=== PATIENT | female | born 2000 | race Caucasian/White ===

== ENCOUNTER 2023-03-02 10:42 | Emergency (ER) | payer OTHER, SELFPAY ==
[2023-03-02 10:43] VITALS: BP 98/64; PULSE 89; RESP 14; TEMP 36.2; O2SAT 100; BMI 23.6
--- NOTE | 2023-03-02 10:48 | ED.RN ---
denies pain at this time
--- NOTE | 2023-03-02 11:46 | EX.ED.DYSGE1 ---
HPI <DAMIR Malcolm - Last Filed: 03/02/23 15:17> History of Present Illness Chief Complaint: Abd Pain Narrative Narrative: Patient presenting today with her parents with intermittent epigastric abdominal pain that she has had since October. She reports that she was seen in an ED in October for this issue where they did a work-up on her and thought that she may have a gastric ulcer and placed her on 2 medications to help control the acid, she did feel relief with these medications but they only gave her 2 weeks worth of meds and she has since ran out. She reports that before her stomach pain began she was taking a lot of ibuprofen after having her wisdom teeth removed. Ibuprofen seems to make the pain worse. She reports she is not able to eat as much as she used to be able to and feels that greasy foods worsen her symptoms. She is nauseous at times but has only had 1 episode of vomiting in this timeframe. LMP two weeks ago. She denies any fever, chills, prior abdominal surgery, constipation/diarrhea, blood in the stool, vomiting and urinary symptoms. PFSH <DAMIR Malcolm - Last Filed: 03/02/23 15:17> PFSH Medical History no medical history Home Medications pantoprazole 40 mg tablet,delayed release (Protonix) 40 mg PO DAILY 14 days #14 tabs 03/02/23 [Rx Last Taken Unknown] sucralfate 1 gram tablet (Carafate) 1 g PO BID 7 days #14 tabs 03/02/23 [Rx Last Taken Unknown] Allergy/AdvReac Type Severity Reaction Status Date / Time No Known Allergies Allergy Verified 03/02/23 10:43 Social History Smoking Status: Never smoker ROS <DAMIR Malcolm - Last Filed: 03/02/23 15:17> ROS ED Constitutional Constitutional ED: Denies chills or fever(s) Cardiovascular Cardiovascular: Denies chest pain Respiratory/Chest Respiratory/Chest: Denies cough or dyspnea Gastrointestinal Gastrointestinal: Reports abdominal pain and nausea; Denies constipation, diarrhea or vomiting Genitourinary Genitourinary ED: Denies dysuria, hematuria or urinary frequency Musculoskeletal Musculoskeletal: Denies arthralgias, back pain or myalgias Integumentary Denies abscess, Abrasions or rash EXAM <DAMIR Malcolm - Last Filed: 03/02/23 15:17> Physical Exam Const Vital Signs: 03/02/23 10:43 03/02/23 14:00 03/02/23 15:07 Temperature 97.1 F L Temperature Source Temporal Pulse Rate 89 72 68 Respiratory Rate 14 16 15 Blood Pressure 98/64 124/66 H 124/77 H Blood Pressure Mean 75 85 Pulse Ox 100 99 99 Oxygen Delivery Method Room Air Room Air Positive well nourished, well developed and no apparent distress General Appearance ED: well developed HEENT Reports normocephalic and head/scalp atraumatic Mouth ED: Yes moist mucous membranes normal Eyes PERRL and EOMs intact bilaterally Neck full ROM and supple Chest Wall inspection of chest normal Resp normal respiratory effort and clear to auscultation bilaterally Cardio regular rate and regular rhythm GI soft to palpation, non-distended and no masses GI Narrative: Slight epigastric tenderness to palpation. Otherwise, abdomen soft and nontender, no rigidity, no guarding. No peritoneal signs. Back/Spine normal ROM and normal to inspection Extremity normal to inspection and full ROM Neuro oriented x3, CN's II-XII intact bilaterally, moves all extremities, no focal motor deficits and no sensory deficits noted Sensorium / Orientation: awake and alert Psych mental status grossly normal and thought process normal Skin no rashes or lesions noted and no wounds <Dr. Giles Umaña DO - Last Filed: 03/02/23 22:20> Physical Exam Const Vital Signs: 03/02/23 10:43 03/02/23 14:00 03/02/23 15:07 Temperature 97.1 F L Temperature Source Temporal Pulse Rate 89 72 68 Respiratory Rate 14 16 15 Blood Pressure 98/64 124/66 H 124/77 H Blood Pressure Mean 75 85 Pulse Ox 100 99 99 Oxygen Delivery Method Room Air Room Air MDM <DAMIR Malcolm - Last Filed: 03/02/23 15:17> [facility] MDM Narrative Medical decision making narrative: Patient presenting today due to intermittent epigastric abdominal pain that she has had since October. She is well-appearing and in no acute rest, vitals are unremarkable. She was placed on 2 medications that sounds like a PPI and Carafate for 2 weeks that did seem to help her symptoms, but she ran out and this has not been refilled by her PCP. She reports that she has had less oral intake as eating too much seems to worsen the pain and has lost about 15 pounds over the past few months. She does have epigastric tenderness to palpation. Labs will be obtained to rule out leukocytosis, anemia, electrolyte abnormality, assess liver enzymes, rule out pancreatitis. Labs over are unremarkable. CT scan of the abdomen pelvis obtained to rule out acute abdominal etiology and does show cholelithiasis. She is not having abdominal pain or nausea here in the ED, therefore she was not given any medication. I suspect that patient's symptoms are either due to biliary colic or possible ulcer. I have given her a prescription for Protonix and Carafate. I encouraged her to stay away from greasy, spicy, acidic foods. She has been given a referral for GI and general surgery. She is to follow-up with the specialists and her PCP and will be discharged home in stable condition. Patient and parents are comfortable with plan. Lab Data Attestation: I reviewed the patient's lab results. Labs: Laboratory Results - last 24 hr 03/02/23 03/02/23 03/02/23 12:37 12:37 12:37 WBC 5.0 RBC 4.69 Hgb 14.0 Hct 41.4 MCV 88.3 MCH 29.9 MCHC 33.8 RDW Std Deviation 39.8 RDW Coeff of Rea 12.4 Plt Count 304 MPV 8.5 Immature Gran % (Auto) 0.200 Neut % (Auto) 58.6 Lymph % (Auto) 31.9 [place] % (Auto) 8.1 Eos % (Auto) 0.6 Baso % (Auto) 0.6 Absolute Neuts (auto) 3.0 Absolute Lymphs (auto) 1.61 Nucleated RBC % 0 Sodium 138 Potassium 4.1 Chloride 104 Carbon Dioxide 29.0 Anion Gap 5 BUN 10 Creatinine 0.71 Estim Creat Clear Calc 94.58 Est GFR (MDRD) Af Amer 133 Est GFR (MDRD) Non-Af 110 BUN/Creatinine Ratio 14.0 Glucose 90 Calcium 9.7 Total Bilirubin 0.80 AST 12 L ALT 9 L Alkaline Phosphatase 48 Total Protein 7.5 Albumin 4.1 Globulin 3.4 Albumin/Globulin Ratio 1.2 Lipase 23 Serum , Qual NEGATIVE Radiography Diagnostic Testing: Clinical Impression(s) from Imaging Studies Abdomen/Pelvis CT 03/02/23 12:16 IMPRESSION: Sludge or small gallstones are seen in the gallbladder lumen. Correlation with ultrasound is recommended. Small amount of free fluid in the cul-de-sac. Follicles are seen in the right ovary. Electronically Signed: David Gamboa MD at 14:32 EDT , <Dr. Giles Umaña, DO - Last Filed: 03/02/23 22:20> [facility] Lab Data Labs: Laboratory Results - last 24 hr 03/02/23 03/02/23 03/02/23 12:37 12:37 12:37 WBC 5.0 RBC 4.69 Hgb 14.0 Hct 41.4 MCV 88.3 MCH 29.9 MCHC 33.8 RDW Std Deviation 39.8 RDW Coeff of Rea 12.4 Plt Count 304 MPV 8.5 Immature Gran % (Auto) 0.200 Neut % (Auto) 58.6 Lymph % (Auto) 31.9 [place] % (Auto) 8.1 Eos % (Auto) 0.6 Baso % (Auto) 0.6 Absolute Neuts (auto) 3.0 Absolute Lymphs (auto) 1.61 Nucleated RBC % 0 Sodium 138 Potassium 4.1 Chloride 104 Carbon Dioxide 29.0 Anion Gap 5 BUN 10 Creatinine 0.71 Estim Creat Clear Calc 94.58 Est GFR (MDRD) Af Amer 133 Est GFR (MDRD) Non-Af 110 BUN/Creatinine Ratio 14.0 Glucose 90 Calcium 9.7 Total Bilirubin 0.80 AST 12 L ALT 9 L Alkaline Phosphatase 48 Total Protein 7.5 Albumin 4.1 Globulin 3.4 Albumin/Globulin Ratio 1.2 Lipase 23 Serum , Qual NEGATIVE Radiography Diagnostic Testing: Clinical Impression(s) from Imaging Studies Abdomen/Pelvis CT 03/02/23 12:16 IMPRESSION: Sludge or small gallstones are seen in the gallbladder lumen. Correlation with ultrasound is recommended. Small amount of free fluid in the cul-de-sac. Follicles are seen in the right ovary. Electronically Signed: David Gamboa MD at 14:32 EDT , Treatment and Re-Evaluation :: I have personally performed a face to face assessment of the patient and have reviewed the SIRIA Note. I performed a substantive portion of the visit including all aspects of the following. My sena findings include: History: Patient presents with epigastric and upper abdominal pain that has been getting worse over the past several days. Patient states she has similar episode approximately 1 month ago and was given prescriptions for a proton pump inhibitor and Carafate. Patient got better after this. Patient had stopped taking this medication after she ran out. Patient was never given any refills. Patient states her pain began getting worse after she stopped taking the medication. Patient denies any fevers or chills. Patient denies any nausea or vomiting. Exam: Vital signs are stable. Patient is afebrile. Patient is in no acute distress. Oral mucosa is pink and moist. Neck is supple. Trachea is midline position JVD. Heart was regular rate and rhythm. Lungs are clear and equal bilaterally. Abdomen is soft. Bowel sounds are normal. There is tenderness over the upper abdomen. There is no rebound or guarding noted. Cranial nerves II through XII are intact. There are no focal motor or sensory deficits noted. Medical Decision Making: Differential diagnosis includes gastritis, gastric ulcer, duodenal ulcer, cholecystitis, cholelithiasis, pancreatitis, and gastroenteritis. CBC will be obtained to assess for leukocytosis and anemia. Comprehensive metabolic profile will be obtained to assess for hepatic function, renal function, and electrolyte abnormality. Lipase will be obtained to assess for pancreatitis. Serum hCG will be obtained to assess for status. CT scan of the abdomen and pelvis will be obtained to assess for bowel obstruction, perforation, cholelithiasis, cholecystitis and pancreatitis. CT scan of the abdomen pelvis was reviewed. There is sludge or small gallstones noted in the gallbladder lumen. There is a small amount of free fluid in the cul-de-sac. There are follicles seen in the right ovary. This was interpreted by the radiologist and was also independently reviewed by myself. CBC was reviewed and was within normal limits. Comprehensive metabolic profile was reviewed and was within normal limits. Lipase was reviewed and was normal. Serum hCG was reviewed and was negative. Patient and family were advised of the findings. Patient was instructed to follow-up with her primary care physician in 5 to 7 days. Patient was also given referral to general surgery and gastroenterology. Patient was given prescription for Protonix and Carafate. Patient was instructed to return if worse in any way. Patient and family understood and were agreeable with the plan. All questions were answered. Discharge Plan Triage Chief Complaint: Abd Pain ED Midlevel Provider: Gricelda Salazar ED Provider: Giles Umaña Dx/Rx/DC Orders Clinical Impression: Abdominal pain Instructions: Treating Gastritis, ED Gallstones with Biliary Colic Prescriptions: New pantoprazole [Protonix] 40 mg tablet,delayed release (DR/EC) 40 mg PO DAILY 14 Days Qty: 14 0RF sucralfate [Carafate] 1 gram tablet 1 g PO BID 7 Days Qty: 14 0RF Primary Care Provider: Theo Burnham Referrals: Oumar Tejeda MD [Med Staff - Active Staff] - 5-7 Days Theo Burnham DO [Primary Care Provider] - 3-5 Days Guille Marques DO [Med Staff - Active Staff] - 3-5 Days Activity Restrictions/Additional Instructions: Please follow-up with the doctors we have referred you to and return for any worsening of your symptoms. Disposition Disposition: Home, Self Care Discharge Date/Time: 03/02/23 15:08
--- NOTE | 2023-03-02 12:16 | CT_ITS ---
STUDY: CT ABDOMEN AND PELVIS WITHOUT CONTRAST REASON FOR EXAM: Female, 23 years old. Chronic abdominal pain. Recent vomiting and nausea RADIATION DOSAGE (If Supplied By Facility): CTDIvol = ( 6.36 ) mGy, DLP = ( 285.93 ) mGycm TECHNIQUE: Transaxial images were obtained from the dome of the diaphragm to the symphysis pubis without oral contrast, and without intravenous contrast. Sagittal and coronal images were reconstructed. Individualized dose optimization techniques were used for this CT. COMPARISON: None. FINDINGS: The visualized lung bases are unremarkable. The visualized portions of the heart are within normal limits. Normal liver. Sludge or small gallstones are seen in the gallbladder lumen. Correlation with ultrasound is recommended. Normal spleen. Normal pancreas. Normal bilateral adrenal glands. Normal right kidney. Normal left kidney. Normal visualized stomach. Normal small intestine. Normal colon. The appendix is visualized and appears normal. Normal abdominal aorta. Normal inferior vena cava. Normal retroperitoneum. Normal urinary bladder. Small amount of free fluid is seen in the cul-de-sac. Follicles are seen in the right ovary. Normal abdominal wall. Straightening of the normal lumbar lordosis. CT/Abdomen/Pelvis without Cont IMPRESSION: Sludge or small gallstones are seen in the gallbladder lumen. Correlation with ultrasound is recommended. Small amount of free fluid in the cul-de-sac. Follicles are seen in the right ovary. Electronically Signed: David Gamboa MD at 14:32 EDT ,
[2023-03-02] MEDS: 0.9% Normal Saline 1,000 ML 1000 ML IV (12:38)
[2023-03-02 12:49] LABS: Absolute Lymphocyte Count 1.61 X10^3/uL (0.83-4.51); Basophil# 0.03 X10^3/uL; Basophil% 0.6 % (0-1); Eosinophil# 0.03 X10^3/uL; Eosinophils% 0.6 % (0-5); Hematocrit 41.4 % (37-47); Lymphocyte # 1.61 X10^3/ul (0.83-4.51); Lymphocyte % 31.9 % (19-41); Mean Corp Hgb Conc 33.8 g/dL (32-36); Mean Corpuscular Hgb 29.9 pg (27.0-32.0); Mean Corpuscular Volume 88.3 fL (81-99); Mean Platelet Vol. 8.5 fl (6.2-12.0); Monocyte# 0.41 X10^3/uL; Monocyte% 8.1 % (0-10); NRBC Flagged by Analyzer 0 % (0-5); Neutrophil # 2.95 X10^3/uL (2.7-7.7); Neutrophil % 58.6 % (47-70); Platelet Count 304 K/mm3 (150-450); RBC Distribution Width CV 12.4 % (11.6-14.6); RBC Distribution Width SD 39.8 fl (35.1-43.9); Red Blood Count 4.69 M/mm3 (4.2-5.4)
[2023-03-02 13:09] LABS: ALB/GLOB Ratio 1.2 RATIO (0.9-2.4); AST(SGOT) 12 U/L (15-37); Alanine Aminotransfer ALT/SGPT 9 U/L (13-56); Albumin, Serum 4.1 g/dL (3.2-5.0); Alkaline Phosphatase 48 U/L (45-117); Anion Gap 5 (5-15); BUN 10 mg/dL (7-18); Calcium,Total 9.7 mg/dL (8.5-10.1); Chloride 104 mmol/L (98-107); Creatinine, Serum 0.71 mg/dL (0.55-1.02); EST Glomerular Filtration Rate 110 mL/min (>60); Est Glom Filt Rate - Afr Amer 133 mL/min (>60); Estimated Creatinine Clearance 94.58 ml/min; Globulin 3.4 g/dL (2.2-4.2); Glucose 90 mg/dL (74-106); Lipase 23 U/L (13-75); Potassium 4.1 mmol/L (3.5-5.1); Protein, Total 7.5 g/dL (6.4-8.2); Sodium Level 138 mmol/L (136-145)
[2023-03-02 14:00] VITALS: BP 124/66; PULSE 72; RESP 16; O2SAT 99
[2023-03-02 14:08] LABS: Internal QC Validated? YES +Cl - CLEAR BKGD
[2023-03-02 14:09] LABS: Pregnancy, Serum, hCG Quali. NEGATIVE Negative
[2023-03-02 15:07] VITALS: BP 124/77; PULSE 68; RESP 15; O2SAT 99
== END 2023-03-02 15:08 | disposition home or self-care (01) ==
PROVIDERS: Emergency Provider Emergency Medicine; PCP Family Medicine; Visit Provider Emergency Medicine
DX: R10.13 Epigastric pain (principal); K80.20 Calculus of gallbladder without cholecystitis without obstruction
CPT/HCPCS: 74176; 80053; 83690; 84703; 85025; 96360; 96361; 99283; J7030

== ENCOUNTER → 2023-04-16 | Outpatient (CLI) | payer SELFPAY, OTHER ==
--- NOTE | 2023-04-16 10:43 | US_ITS ---
INDICATION: right upper quadrant pain EXAMINATION: Ultrasound US Abdomen RUQ (limited) TECHNIQUE: Manning scale and color doppler imaging was performed of the right upper quadrant. COMPARISON: FINDINGS: LIVER: There is normal echotexture. Liver measures 17.2 cm in greatest dimension. No focal hepatic lesion. There is no free fluid. GALLBLADDER AND BILIARY TREE: No shadowing gallstone, pericholecystic fluid or gallbladder wall thickening is demonstrated. The proximal common bile duct measures 2.7mm, which is within normal limits for the patient''s age. Songraphic Masters''s sign: Negative. PANCREAS: No focal abnormality is demonstrated in the pancreas. No pancreatic ductal dilatation. RIGHT KIDNEY: Right kidney measures 10.3 cm greatest dimension and appears grossly unremarkable. US/Gallbladder IMPRESSION: No acute sonographic abnormality is demonstrated in the right upper quadrant. Electronically Signed: Cole Appiah, at 11:40 EDT ,
== END | disposition home or self-care (01) ==
PROVIDERS: PCP Family Medicine; Referring Provider Surgery; Visit Provider Surgery
DX: R10.11 Right upper quadrant pain (principal)
CPT/HCPCS: 76705

== ENCOUNTER → 2023-05-15 | Outpatient (CLI) | payer OTHER, SELFPAY ==
--- NOTE | 2023-05-15 08:02 | NM_ITS ---
CLINICAL: 23-year-old female with history of abdominal pain and nausea. RADIONUCLIDE HEPATOBILIARY SCINTIGRAPHY COMPARISON: Abdominal ultrasound report 04/16/2023 FINDINGS: Following the intravenous administration of 5.6 mCi of 99m Tc Mebrofenin, hepatobiliary images reveal: 1. Relatively prompt and homogeneous radiopharmaceutical concentration is noted by a normal sized liver. No parenchymal defects are identified. 2. Gallbladder activity is identified at 15 minutes post radiopharmaceutical administration. 3. Small intestinal tract is observed at 45 minutes following tracer injection. 4. Washout of the radiopharmaceutical by the hepatic parenchyma appears qualitatively normal. Cholecystokinin (0.02 ug/kg) was administered intravenously over a 30-minute period. The post CCK gallbladder ejection fraction calculated at 20 minutes following Cholecystokinin administration was noted to be 52.0 % (normal greater than 35%). During 30 minutes of post CCK imaging, there is no scintigraphic evidence of reflux of the radiotracer into the common hepatic duct or refilling of the gallbladder. There is scintigraphic evidence of post CCK duodenal gastric reflux. NM/Hepatobilliary Img w/Pharm Int IMPRESSION: 1. A gallbladder ejection fraction calculated to be greater than 35% following the administration of Cholecystokinin makes the probability of functional hepatobiliary disease (gallbladder and/or sphincter of Oddi dyskinesia) and/or organic hepatobiliary disease (chronic acalculous cholecystitis and/or cystic duct syndrome) to be low. (Chet Burton et al, Journal of Nuclear Medicine 32:1695, 1990). 2. There is scintigraphic evidence of post CCK duodenal-gastric reflux as described above. (Bora et al, Nucl Med Rosalinda [employer] Press pg. 35, 1980). Electronically Signed: Kenroy Sun, at 23:44 EDT ,
== END | disposition home or self-care (01) ==
LOC: NM 07:53
PROVIDERS: PCP Family Medicine; Referring Provider Physician Assistant; Visit Provider Physician Assistant
DX: R10.9 Unspecified abdominal pain (principal)
CPT/HCPCS: 78227; A9537; J2805